=== PATIENT | female | born 1960 | race Caucasian/White ===

== ENCOUNTER 2017-03-27 12:21 | Observation (INO) | payer OTHER ==
[2017-03-27] MEDS ORDERED: RX INFO: IV CONTRAST WAS GIVEN 1 EACH MISC MISCELLANE PRN (12:52)
[2017-03-27 13:03] LABS: Basophils % (A) 0 %; Eosinophils # (A) 0.1 k/uL (0-0.7); Eosinophils % (A) 1 %; HCT 40.6 % (34.0-46.0); HGB 13.5 gm/dL (11.4-16.0); Lymphocytes # (A) 1.1 k/uL (1.0-4.8); Lymphocytes % (A) 15 %; MCHC 33.2 g/dL (31.0-37.0); MCV 90.5 fL (80.0-100.0); Mean Platelet Volume 7.3; Monocytes # (A) 0.3 k/uL (0-1.0); Monocytes % (A) 4 %; Neutrophils # (A) 6.1 k/uL (1.3-7.7); Neutrophils % (A) 80 %; Platelet Count 291 k/uL (150-450); RBC 4.49 m/uL (3.80-5.40); RDW 13.9 % (11.5-15.5); WBC 7.6 k/uL (3.8-10.6)
--- NOTE | 2017-03-27 13:04 | ED ---
General Adult HPI - General Chief complaint: Weakness Stated complaint: Near syncope Time Seen by Provider: 03/27/17 12:40 Source: patient, RN notes reviewed Mode of arrival: wheelchair Limitations: no limitations - History of Present Illness Initial comments: Patient is a pleasant 56-year-old female presenting to the emergency department for near syncopal event. Patient states she started feeling nauseated. Patient then went to the bathroom around noon. Patient felt odd sensation of the right arm alone. Patient states the right arm does feel a little bit weak. Onset was around noon. Patient felt like her legs aching weak and like she may pass out. Patient still feels mildly nauseated. Patient feels her right arm is still slightly weaker than her left arm. Patient states she may feel slightly confused. - Related Data Home Medications Medication Instructions Recorded Confirmed Aspirin EC [Ecotrin Low Dose] 81 mg PO DAILY 03/27/17 03/27/17 Biotin 5 mg PO DAILY 03/27/17 03/27/17 Calcium Carbonate [Calcium] 600 mg PO DAILY 03/27/17 03/27/17 Cholecalciferol [Vitamin D3] 1,000 unit PO DAILY 03/27/17 03/27/17 Cranberry Fruit Extract [Cranberry] 500 mg PO DAILY 03/27/17 03/27/17 Doxylamine Succinate [Unisom] 25 mg PO HS 03/27/17 03/27/17 diphenhydrAMINE [Benadryl] 25 mg PO HS 03/27/17 03/27/17 Allergies Allergy/AdvReac Type Severity Reaction Status Date / Time No Known Allergies Allergy Verified 03/27/17 14:17 Review of Systems ROS Statement: Those systems with pertinent positive or pertinent negative responses have been documented in the HPI. ROS Other: All systems not noted in ROS Statement are negative. Constitutional: Denies: fever Eyes: Denies: eye pain ENT: Denies: ear pain Respiratory: Denies: cough Cardiovascular: Denies: chest pain Endocrine: Denies: fatigue Gastrointestinal: Denies: abdominal pain Genitourinary: Denies: dysuria Musculoskeletal: Denies: back pain Skin: Denies: rash Neurological: Reports: weakness Past Medical History Past Medical History: No Reported History History of Any Multi-Drug Resistant Organisms: None Reported Additional Past Surgical History / Comment(s): oopherectomy Past Psychological History: Depression Smoking Status: Never smoker Past Alcohol Use History: Daily, Occasional Past Drug Use History: None Reported General Exam Limitations: no limitations General appearance: alert, in no apparent distress Head exam: Present: atraumatic Eye exam: Present: normal appearance, PERRL ENT exam: Present: normal oropharynx Neck exam: Present: normal inspection Respiratory exam: Present: normal lung sounds bilaterally Cardiovascular Exam: Present: regular rate, normal rhythm GI/Abdominal exam: Present: soft. Absent: tenderness Extremities exam: Present: normal inspection Neurological exam: Present: alert, oriented X3, CN II-XII intact Expanded Patient oriented to: Present: person, place, time Speech: Present: fluid speech Cranial nerves: EOM's Intact: Normal, Facial Sensation: Normal Cerebellar function: Finger to Nose: Abnormal Right Sensory exam: Upper Extremity Light Touch: Normal, Lower Extremity Light Touch: Normal Motor strength exam: RUE: 4, LUE: 5, RLE: 4, LLE: 5 Eye Response: (4) open spontaneously Motor Response: (6) obeys commands Verbal Response: (5) oriented Psychiatric exam: Present: normal affect, normal mood Skin exam: Present: normal color Course Vital Signs 03/27/17 03/27/17 03/27/17 12:32 12:53 13:08 Temperature 97.3 F L Pulse Rate 71 88 84 Respiratory 18 20 18 Rate Blood Pressure 156/83 157/81 149/89 O2 Sat by Pulse 98 95 97 Oximetry 03/27/17 03/27/17 03/27/17 13:23 13:38 14:25 Temperature Pulse Rate 82 88 79 Respiratory 18 18 18 Rate Blood Pressure 150/89 149/86 150/89 O2 Sat by Pulse 97 96 99 Oximetry - Reevaluation(s) Reevaluation #1: 03/27/17 13:09 Case was discussed with Dr. Ruano who does not feel TPA should be used at this time. 03/27/17 13:33 Nursing reports NIH at 0 EKG Findings - EKG Comments: EKG Findings:: Normal sinus rhythm 76. CT 160. QRS 86. QT 402. QTC 452. Normal axis. Septal Q waves. No acute ST change. Medical Decision Making - Medical Decision Making Patient reevaluated and symptom-free. Patient updated on results and plan. - Lab Data Result diagrams: 03/27/17 12:53 03/27/17 12:53 Lab Results 03/27/17 03/27/17 03/27/17 Range/Units 12:53 12:53 12:53 WBC 7.6 (3.8-10.6) k/uL RBC 4.49 (3.80-5.40) m/uL Hgb 13.5 (11.4-16.0) gm/dL Hct 40.6 (34.0-46.0) % MCV 90.5 (80.0-100.0) fL MCH 30.0 (25.0-35.0) pg MCHC 33.2 (31.0-37.0) g/dL RDW 13.9 (11.5-15.5) % Plt Count 291 (150-450) k/uL Neutrophils % 80 % Lymphocytes % 15 % Monocytes % 4 % Eosinophils % 1 % Basophils % 0 % Neutrophils # 6.1 (1.3-7.7) k/uL Lymphocytes # 1.1 (1.0-4.8) k/uL Monocytes # 0.3 (0-1.0) k/uL Eosinophils # 0.1 (0-0.7) k/uL Basophils # 0.0 (0-0.2) k/uL PT (9.0-12.0) sec INR (<1.2) APTT (22.0-30.0) sec Sodium 145 (137-145) mmol/L Potassium 3.8 (3.5-5.1) mmol/L Chloride 107 (98-107) mmol/L Carbon Dioxide 26 (22-30) mmol/L Anion Gap 12 mmol/L BUN 18 H (7-17) mg/dL Creatinine 0.81 (0.52-1.04) mg/dL Est GFR (MDRD) Af Amer >60 (>60 ml/min/1.73 sqM) Est GFR (MDRD) Non-Af >60 (>60 ml/min/1.73 sqM) Glucose 104 H (74-99) mg/dL Calcium 9.4 (8.4-10.2) mg/dL Total Bilirubin 0.3 (0.2-1.3) mg/dL AST 21 (14-36) U/L ALT 20 (9-52) U/L Alkaline Phosphatase 61 (38-126) U/L Total Creatine Kinase 134 (30-135) U/L CK-MB (CK-2) 1.2 (0.0-2.4) ng/mL CK-MB (CK-2) Rel Index 0.9 Troponin I <0.012 (0.000-0.034) ng/mL Total Protein 7.4 (6.3-8.2) g/dL Albumin 4.4 (3.5-5.0) g/dL 03/27/17 Range/Units 12:53 WBC (3.8-10.6) k/uL RBC (3.80-5.40) m/uL Hgb (11.4-16.0) gm/dL Hct (34.0-46.0) % MCV (80.0-100.0) fL MCH (25.0-35.0) pg MCHC (31.0-37.0) g/dL RDW (11.5-15.5) % Plt Count (150-450) k/uL Neutrophils % % Lymphocytes % % Monocytes % % Eosinophils % % Basophils % % Neutrophils # (1.3-7.7) k/uL Lymphocytes # (1.0-4.8) k/uL Monocytes # (0-1.0) k/uL Eosinophils # (0-0.7) k/uL Basophils # (0-0.2) k/uL PT 10.1 (9.0-12.0) sec INR 1.0 (<1.2) APTT 21.5 L (22.0-30.0) sec Sodium (137-145) mmol/L Potassium (3.5-5.1) mmol/L Chloride (98-107) mmol/L Carbon Dioxide (22-30) mmol/L Anion Gap mmol/L BUN (7-17) mg/dL Creatinine (0.52-1.04) mg/dL Est GFR (MDRD) Af Amer (>60 ml/min/1.73 sqM) Est GFR (MDRD) Non-Af (>60 ml/min/1.73 sqM) Glucose (74-99) mg/dL Calcium (8.4-10.2) mg/dL Total Bilirubin (0.2-1.3) mg/dL AST (14-36) U/L ALT (9-52) U/L Alkaline Phosphatase (38-126) U/L Total Creatine Kinase (30-135) U/L CK-MB (CK-2) (0.0-2.4) ng/mL CK-MB (CK-2) Rel Index Troponin I (0.000-0.034) ng/mL Total Protein (6.3-8.2) g/dL Albumin (3.5-5.0) g/dL - Radiology Data Radiology results: report reviewed (Computed tomography scan the brain shows no acute process. CTA of the brain and neck shows no acute process.), image reviewed (X-ray shows no acute process) Disposition Clinical Impression: TIA (transient ischemic attack) Disposition: ADMITTED IP TO THIS [facility] Referrals: None,Stated [Primary Care Provider] - 1-2 days Decision Time: 15:10
[2017-03-27 13:10] LABS: Prothrombin Time 10.1 sec (9.0-12.0)
[2017-03-27 13:15] LABS: ALT 20 U/L (9-52); AST 21 U/L (14-36); Albumin 4.4 g/dL (3.5-5.0); Alkaline Phosphatase 61 U/L (38-126); Anion Gap 12 mmol/L; Blood Urea Nitrogen 18 mg/dL (7-17); Calcium 9.4 mg/dL (8.4-10.2); Carbon Dioxide 26 mmol/L (22-30); Chloride 107 mmol/L (98-107); Glucose 104 mg/dL (74-99); Potassium 3.8 mmol/L (3.5-5.1); Sodium 145 mmol/L (137-145); Total Bilirubin 0.3 mg/dL (0.2-1.3); Total Protein 7.4 g/dL (6.3-8.2)
[2017-03-27 13:28] LABS: Creatine Kinase 134 U/L (30-135)
[2017-03-27 13:31] LABS: Partial Thromboplastin Time 21.5 sec (22.0-30.0)
--- NOTE | 2017-03-27 13:35 | CT ---
EXAMINATION TYPE: CT brain wo con for TPA DATE OF EXAM: 03/27/2017 COMPARISON: NONE HISTORY: 56-year-old female Chest deficits, Right sided weakness, tingling and nausea. TECHNIQUE: Examination was done in axial plane without intravenous contrast. Coronal and sagittal r econstructions performed. CT DLP: 1520 mGycm Automated exposure control for dose reduction was used. FINDINGS: There is no evidence of acute intracranial hemorrhage, acute ischemic changes, mass, mass-effect, or extra-axial fluid collection. There is no effacement of cerebral sulci or basal subarachnoid cister ns. There is no hydrocephalus. There is no midline shift. Rosales-white matter distinction is preserv ed. Incidental partially empty sella. Leftward nasal septal deviation. Hypoplastic right mastoid air cells. Orbits and globes appear intact . IMPRESSION: No acute intracranial abnormality seen. If symptoms persist, follow-up MRI.
[2017-03-27 13:40] LABS: Creatine Kinase MB 1.2 ng/mL (0.0-2.4); Troponin I <0.012 ng/mL (0.000-0.034)
--- NOTE | 2017-03-27 13:40 | CT ---
EXAMINATION TYPE: CT angio head neck DATE OF EXAM: 03/27/2017 COMPARISON: Correlation noncontrast CT brain same day HISTORY: 56-year-old female Neuro Deficits with nausea and right sided tingling TECHNIQUE: Contiguous axial scanning of the head and neck performed with IV Contrast, patient injecte d with 100 ml mL of Omnipaque 350. Coronal/sagittal MIP reconstructions performed. 3-D reconstruction s generated on a dedicated independent workstation. CT DLP: 375.42 mGycm Automated exposure control for dose reduction was used. FINDINGS: Head: Major intracranial arteries including the vertebral, basilar, and internal carotid arteries are paten t. Anterior and posterior circulations are grossly patent. No significant stenosis or aneurysmal rivas ge seen. NECK: Conventional arch vessel branching anatomy with patent arch vessel origins. Bilateral vertebral artery origins are patent. The vessels are codominant and patent throughout the c ourse. The common and internal carotid arteries are patent throughout their course. Tortuosity of the proxim al ICAs and both sides. IMPRESSION: 1. NO LARGE VESSEL INTRACRANIAL OCCLUSION. 2. WIDELY PATENT CAROTID AND VERTEBRAL ARTERIES IN THE NECK.
--- NOTE | 2017-03-27 14:06 | XR ---
EXAMINATION TYPE: XR chest 2V DATE OF EXAM: 03/27/2017 COMPARISON: NONE HISTORY: Altered mental status TECHNIQUE: Frontal and lateral views of the chest are obtained. FINDINGS: There is no focal air space opacity, pleural effusion, or pneumothorax seen. The cardiac silhouette size is within normal limits. There are overlying cardiac leads. The osseous structures a re intact. IMPRESSION: No acute cardiopulmonary process.
[2017-03-27] MEDS ORDERED: ASPIRIN 325 MG TAB PO STA (15:10)
[2017-03-27] MEDS: SODIUM CHLORIDE 0.9% 1,000 ML IV SCH (15:44)
[2017-03-27] MEDS ORDERED: CALCIUM CARBONATE 500 MG CHEWABLE PO PRN (16:05)
[2017-03-27] MEDS ORDERED: DOCUSATE 100 MG CAP PO PRN (16:05)
[2017-03-27] MEDS ORDERED: ACETAMINOPHEN TAB 325 MG TAB PO PRN (16:05)
[2017-03-27] MEDS ORDERED: ONDANSETRON 4 MG/2 ML VIAL IVP PRN (16:05)
[2017-03-27] MEDS ORDERED: MELATONIN 5 MG TABLET PO PRN (16:05)
[2017-03-27] MEDS ORDERED: HYDROcodone/APAP 5-325MG 1 EACH TAB PO PRN (16:05)
[2017-03-27] MEDS ORDERED: diphenhydrAMINE 50 MG CAP PO PRN (16:25)
--- NOTE | 2017-03-27 16:26 | P.HPIM ---
History of Present Illness H&P Date: 03/27/17 Chief Complaint: right arm weakness Patient is a 56-year-old female with a history of a pituitary microadenoma 26 years ago, prior headaches, and seasonal ALLERGIES who presented to the ER with complaints of right arm numbness and tingling and weakness. In the ER she underwent an extensive evaluation. Her initial laboratory analysis was unremarkable. Initial vital signs were within normal limits. There was concern for possible stroke and she received a dose of aspirin. Head CT was unremarkable. CTA of the head and neck was unremarkable. Arrangements are made for admission for possible TIA. Initially when she got to the ER she was having an abnormal finger to nose on the right as well as right upper extremity weakness with these resolved on recheck. Patient seen and examined at bedside. She states she was at work this morning and started feeling nauseous. She then went to the bathroom and started feeling lightheaded and dizzy. She then noted that numbness starting in her right hand and moving up words towards her right shoulder. A coworker came and took her to the break room. She then developed some right hand weakness and heaviness. They called the ER to further evaluate her. Initially she had thought her symptoms were due to stress. After her CT her numbness had completely resolved and her hand weakness was improved. She reports that 26 years ago she was told that she had a pituitary microadenoma with elevated prolactin levels after nursing her first child. At that point in time they tried medications which per her did not shrink the tumor. She has not had any medical treatment since then. She reports a 35 pound weight gain in the last year. She also reports that she has had visual changes including issues with double vision in her right eye and inability to differentiate colors. She has been seeing an agricultural aircraft pilot who had wanted her to see an morphology teacher, but she has not made an appointment yet. She also reports that she's been having almost daily headaches which are unchanged. She had been on a statin medication in the past but it made her nauseated and she no longer is taking this. She has not seen a primary care doctor in approximately 3 years. She also reports a right breast lump which has been growing in size. She denies any recent changes in medications. She has not had any recent cough , cold, fever, flu. Review of Systems Pertinent positives and negatives as per HPI, all other 12 point review of systems is negative Past Medical History Past Medical History: Hyperlipidemia Additional Past Medical History / Comment(s): ALLERGIC rhinitis, depression, headaches, pituitary adenoma History of Any Multi-Drug Resistant Organisms: None Reported Additional Past Surgical History / Comment(s): oopherectomy, tonsillectomy Past Psychological History: Depression Smoking Status: Never smoker Past Alcohol Use History: Daily (1-2 drinks 5 times weekly) Past Drug Use History: None Reported Additional History: Her son lives with her but he is not home much. 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 - Past Family History Mother Family Medical History: Coronary Artery Disease (CAD) Father Family Medical History: Coronary Artery Disease (CAD) Medications and Allergies Home Medications Medication Instructions Recorded Confirmed Type Aspirin EC [Ecotrin Low Dose] 81 mg PO DAILY 03/27/17 03/27/17 History Biotin 5 mg PO DAILY 03/27/17 03/27/17 History Calcium Carbonate [Calcium] 600 mg PO DAILY 03/27/17 03/27/17 History Cholecalciferol [Vitamin D3] 1,000 unit PO DAILY 03/27/17 03/27/17 History Cranberry Fruit Extract [Cranberry] 500 mg PO DAILY 03/27/17 03/27/17 History Doxylamine Succinate [Unisom] 25 mg PO HS 03/27/17 03/27/17 History diphenhydrAMINE [Benadryl] 25 mg PO HS 03/27/17 03/27/17 History Allergies Allergy/AdvReac Type Severity Reaction Status Date / Time No Known Allergies Allergy Verified 03/27/17 14:17 Physical Exam Osteopathic Statement: *. No significant issues noted on an osteopathic structural exam other than those noted in the History and Physical/Consult. Vitals: Vital Signs Temp Pulse Resp BP Pulse Ox 03/27/17 15:47 89 18 152/90 99 03/27/17 14:25 79 18 150/89 99 03/27/17 13:38 88 18 149/86 96 03/27/17 13:23 82 18 150/89 97 03/27/17 13:08 84 18 149/89 97 03/27/17 12:53 88 20 157/81 95 03/27/17 12:32 97.3 F L 71 18 156/83 98 Intake and Output 03/27/17 03/27/17 03/27/17 06:59 14:59 22:59 Other: Weight 68.039 kg Patient Weight 03/28/17 06:59 Weight 68.039 kg General: non toxic, no distress, appears at stated age, normal weight Derm: no unusual rashes/lesions no unusual ecchymoses, warm, dry Head: atraumatic, normocephalic, symmetric Eyes: EOMI, no lid lag, anicteric sclera, pupils equal round reactive to light ENT: Nose and ears atraumatic, no thrush, no pharyngeal erythema Neck: No thyromegaly, no cervical lymphadenopathy, trachea midline, supple Mouth: no lip lesion, mucus membranes moist Cardiovascular: S1S2 reg, no murmur, positive posterior tibial pulse bilateral, no edema, capillary refill less than 2 seconds Lungs: CTA bilateral, no rhonchi, no rales , no accessory muscle use Abdominal: soft, nontender to palpation, no guarding, no appreciable organomegaly, normal bowel sounds Ext: no gross muscle atrophy, muscle strength: 5/5 RUE 5/5 LUE 5/5 LLE 4/5 RLE did have some tremor in the right leg. , no contractures, Neuro: CN II-XI grossly intact, light touch intact all 4 extremities, finger to nose within normal limits, Psych: Alert, oriented, appropriate affect Results CBC & Chem 7: 03/27/17 12:53 03/27/17 12:53 Labs: Abnormal Lab Results - Last 24 Hours (Table) 03/27/17 03/27/17 Range/Units 12:53 12:53 APTT 21.5 L (22.0-30.0) sec BUN 18 H (7-17) mg/dL Glucose 104 H (74-99) mg/dL Comments: EKG is reviewed by myself reveals normal sinus rhythm at a rate of 76, normal intervals, normal axis, no significant ST-T wave changes Thrombosis Risk Factor Assmnt - DVT/VTE Prophylaxis DVT/VTE Prophylaxis: Pharmacologic Prophylaxis ordered Assessment and Plan Assessment: Right upper extremity numbness and weakness -Suspect TIA vs CVA vs B 12 deficiency vs anxiety -CT of the head and CTA of the head and neck is negative -Echocardiogram, telemetry, check lipid profile -Neurology consult -May benefit from MRI secondary to prior pituitary adenoma but will await neurology recommendations: then consider TSH and prolactic levels -PT/OT/speech recommendations -Aspirin, statin -Check B12 level with lung distribution of numbness Breast Lump - will need PCP on discharge - needs outpatient Mammogram. Headache -Tylenol Insomnia -Melatonin, Benadryl-she takes these at home Alcohol use -Monitor for signs of withdrawal Surrogate decision-maker: Son CODE STATUS:Full DVT prophylaxis: Lovenox Discussed with: Patient, ED physician Anticipated discharge: 24-[address]: home A total of 60 minutes was spent on the care of this complex patient more than 50 % of the time was spent in counseling and care coordination.
--- NOTE | 2017-03-27 16:46 | US ---
EXAMINATION TYPE: US carotid duplex BILAT DATE OF EXAM: 03/27/2017 COMPARISON: CT angio of head and neck CLINICAL HISTORY: 56-year-old female Stenosis. TECHNIQUE: Carotid duplex ultrasound examination. Indirect Doppler criteria was utilized. FINDINGS: EXAM MEASUREMENTS: RIGHT: Peak Systolic Velocity (PSV) cm/sec ----- Right CCA: 92.5 ----- Right ICA: 83.1 ----- Right ECA: 95.5 ICA/CCA ratio: 0.9 RIGHT: End Diastole cm/sec ----- Right CCA: 18.3 ----- Right ICA: 36.9 ----- Right ECA: 11.8 LEFT: Peak Systolic Velocity (PSV) cm/sec ----- Left CCA: 74.5 ----- Left ICA: 72.9 ----- Left ECA: 86.9 ICA/CCA ratio: 1.0 LEFT: End Diastole cm/sec ----- Left CCA: 18.9 ----- Left ICA: 34.5 ----- Left ECA: 13.4 VERTEBRALS (direction of flow): Right Vertebral: Antegrade Left Vertebral: Antegrade Rhythm: Arrhythmia MANAGER GAS NOTES: Dr. Amado aware CT angio done first. No evident plaque, ICA dove at 90 degree angle distally. No significant velocity elevations. IMPRESSION: No hemodynamically significant stenosis identified in either internal carotid artery. Criteria for Assigning % of Stenosis / Diameter reduction (Estimation based on the indirect measurements of the internal carotid artery velocities (ICA PSV). 1. Normal (no stenosis)=ICA PSV < 125 cm/s: ratio < 2.0: ICA EDV<40 cm/s. 2. Less than 50% stenosis=ICA PSV < 125 cm/s: ratio < 2.0: ICA EDV<40 cm/s. 3. 50 to 69% stenosis=ICA PSV of 125 to 230 cm/s: ration 2.0 ? 4.0: ICA EDV 40-100 cm/s. 4. Greater than 70% stenosis to near occlusion= ICA PSV > 230 cm/s: ratio > 4.0: ICA EDV > 100 cm/s. 5. Near occlusion= ICA PSV velocities may be low or undetectable: variable ratio and ICA EDV. 6. Total occlusion=unable to detect flow.
[2017-03-27 20:56] VITALS: RESP 16
[2017-03-27] MEDS ORDERED: ATORVASTATIN 20 MG TAB PO SCH (21:00)
[2017-03-28] MEDS: SODIUM CHLORIDE 0.9% 1,000 ML IV SCH ×2 (02:18→11:31)
[2017-03-28 06:41] LABS: Anion Gap 8 mmol/L; Blood Urea Nitrogen 13 mg/dL (7-17); Calcium 8.7 mg/dL (8.4-10.2); Carbon Dioxide 28 mmol/L (22-30); Chloride 107 mmol/L (98-107); Cholesterol 151 mg/dL (<200); Glucose 87 mg/dL (74-99); HDL Cholesterol 50 mg/dL (40-60); LDL Cholesterol,Calculated 86 mg/dL (0-99); Magnesium 1.9 mg/dL (1.6-2.3); Potassium 4.1 mmol/L (3.5-5.1); Sodium 143 mmol/L (137-145); Triglycerides 76 mg/dL (<150)
[2017-03-28] MEDS ORDERED: LORazepam 2 MG/ML INJ IV ONE (09:00)
[2017-03-28] MEDS ORDERED: NON-FORMULARY DRUG (Biotin [Biotin] 5 MG) PO SCH (09:00)
[2017-03-28] MEDS ORDERED: ASPIRIN 325 MG TAB PO SCH (09:00)
[2017-03-28] MEDS ORDERED: ENOXAPARIN 40 MG/0.4 ML SYRINGE SQ SCH (09:00)
--- NOTE | 2017-03-28 10:46 | MR ---
EXAMINATION TYPE: MR brain wo con DATE OF EXAM: 03/28/2017 COMPARISON: 03/27/2017 CT brain, MRI 08/19/2013 HISTORY: CVA, hx of pituitary adenoma T1-weighted sagittal, T2, FLAIR, and diffusion axial, and T2 coronal coronal views of the brain are s ubmitted. There is no evidence of acute ischemia. The ventricles, basal cisterns, and sulci overlying the conv exities are consistent with the patient's age. There is no mass effect. Craniocervical junction maintained. Sella turcica has a normal appearance. No cerebellopontine angle mass. There are multiple nonspecific areas of abnormal signal within the wh ite matter. Findings are stable. Changes of chronic sinusitis noted. IMPRESSION: 1. No acute intracranial process. 2. Stable nonspecific white matter changes. Remote microvascular ischemia favored. Other etiologies i ncluding demyelinating process not entirely excluded.
[2017-03-28 11:26] VITALS: BP 130/76; PULSE 93; TEMP 96.8
--- NOTE | 2017-03-28 11:42 | ECHOF ---
Referral Reason:Thrombus MEASUREMENTS -------- HEIGHT: 170.2 cm WEIGHT: 68.0 kg BP: 150/89 RVIDd: 1.8 cm (< 3.3) IVSd: 1.0 cm (0.6 - 1.1) LVIDd: 3.9 cm (3.9 - 5.3) LVPWd: 1.2 cm (0.6 - 1.1) IVSs: 1.4 cm LVIDs: 3.1 cm LVPWs: 1.3 cm LAESV Index (A-L): 18.57 ml/m Ao Diam: 3.0 cm (2.0 - 3.7) AV Cusp: 1.9 cm (1.5 - 2.6) LA Diam: 1.9 cm (2.7 - 3.8) EPSS: 0.3 cm MV E Sandro: 0.75 m/s MV DecT: 371 ms MV A Sandro: 0.88 m/s MV E/A Ratio: 0.85 RAP: 5.00 mmHg RVSP: 10.01 mmHg MV EF SLOPE: 127.82 mm/s (70 - 150) MV EXCURSION: 1.89 cm (> 18.000) FINDINGS -------- Sinus rhythm. This was a technically adequate study. The left ventricular size is normal. There is borderline concentric left ventricular hypertrophy. Overall left ventricular systolic function is low-normal with, an EF between 50 - 55 %. The right ventricle is normal in size and function. Normal LA size by volume 22+/-6 ml/m2. RA appears enlarged. Aortic valve is trileaflet and is mildly thickened. There is no evidence of aortic regurgitation. There is no evidence of aortic stenosis. The mitral valve leaflets are mildly thickened. Mild mitral regurgitation is present. Trace tricuspid regurgitation present. Right ventricular systolic pressure is normal at < 35 mmHg. There is no evidence of pulmonary hypertension. The pulmonic valve was not well visualized. The aortic root size is normal. Normal inferior vena cava with normal inspiratory collapse consistent with estimated right atrial pre ssure of 5 mmHg. CONCLUSIONS -------- 1. Sinus rhythm. 2. This was a technically adequate study. 3. The left ventricular size is normal. 4. There is borderline concentric left ventricular hypertrophy. 5. Overall left ventricular systolic function is low-normal with, an EF between 50 - 55 %. 6. Normal LA size by volume 22+/-6 ml/m2. 7. RA appears enlarged. 8. Aortic valve is trileaflet and is mildly thickened. 9. The mitral valve leaflets are mildly thickened. 10. Mild mitral regurgitation is present. 11. Trace tricuspid regurgitation present. 12. Right ventricular systolic pressure is normal at < 35 mmHg. 13. There is no evidence of pulmonary hypertension. 14. The pulmonic valve was not well visualized. 15. The aortic root size is normal. TOWER DRAGLINE OPERATOR: Good Guerrero RDCS
[2017-03-28] MEDS ORDERED: CHOLECALCIFEROL 1,000 UNIT TAB PO SCH (12:00)
[2017-03-28] MEDS ORDERED: CALCIUM CARBONATE 500 MG CHEWABLE PO SCH (12:00)
--- NOTE | 2017-03-28 12:33 | P.DS ---
Providers Date of admission: 03/27/17 15:10 Expected date of discharge: 03/28/17 Attending physician: Janis Vázquez DO Consults: 03/27/17 15:11 Consult Physician Urgent Consulting Provider: Kinjal Rodriguez Consult Reason/Comments: tia Do you want consulting provider notified?: Yes Primary care physician: Stated None - Discharge Diagnosis(es) (1) TIA (transient ischemic attack) Current Visit: Yes Status: Acute (2) HLD (hyperlipidemia) Current Visit: Yes Status: Acute (3) LVH (left ventricular hypertrophy) Current Visit: Yes Status: Acute Hospital Course: Patient is a 56-year-old female with a history of a pituitary microadenoma 26 years ago, prior headaches, and seasonal ALLERGIES who presented to the ER with complaints of right arm numbness and tingling and weakness. In the ER she underwent an extensive evaluation. Her initial laboratory analysis was unremarkable. Initial vital signs were within normal limits. There was concern for possible stroke and she received a dose of aspirin. Head CT was unremarkable. CTA of the head and neck was unremarkable. Arrangements are made for admission for possible TIA. Initially when she got to the ER she was having an abnormal finger to nose on the right as well as right upper extremity weakness but these resolved on recheck. She subsequently underwent an MRI of the brain which did not show any abnormality in the pituitary area. Here systolic blood pressure here ranged from 130-150s. Her echocardiogram showed possible mild concentric LVH. Her lipid profile did show an LDL of 86 and a total cholesterol of 151. We discussed dietary changes and increased exercise versus medication. She states that it would be hard for her to incorporate diet and exercise at this point in time secondary to increased work load. She does want it was eventually. In the meantime she'll be started on statin therapy. We discussed that she may have high blood pressure as well. She does not have any severely elevated blood pressures during hospitalization of the longer she was here more her blood pressure became controlled. I have urged her that she will need close outpatient follow-up to determine whether she needs antihypertensive medications or not. She is agreeable with this plan of care. 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 They felt she may need evaluation by endocrinology secondary to history of pituitary adenoma, however 1 was not seen on MRI. I have included Dr. Magallanes's information in case they continue to want her to see endocrinology for other reasons. She is determined stable for discharge home. She was further referred to Dr. Wharton for her primary care for provider. Patient seen and examined at bedside. Weakness resolved, numbness and tingling resolved. No headaches. Feeling well. No chest pain, shortness breath, nausea , or vomiting. We discussed all of the above lab results and test results. Vital signs reviewed and stable. General: non toxic, no distress, appears at stated age Derm: warm, dry Head: atraumatic, normocephalic, symmetric Eyes: EOMI, no lid lag, anicteric sclera Mouth: no lip lesion, mucus membranes moist Cardiovascular: S1S2 reg, no murmur, positive posterior tibial pulse bilateral, Lungs: CTA bilateral, no rhonchi, no rales , no accessory muscle use Abdominal: soft, nontender to palpation, no guarding, no appreciable organomegaly Ext: no gross muscle atrophy, no edema, no contractures Neuro: CN II-XI grossly intact, no focal neuro deficits Psych: Alert, oriented, appropriate affect A total of 35 minutes of time were spent preparing this complex discharge summary . Pertinent Studies: CT head- No acute process CTA head and neck- No significant stenosis Echo- EF 50-55%, mild concentric LVH MRI brain- Non specific white matter changes. Remote microvasvular ischemia favored other etiologies such as demyelinating process not entirely excluded. Patient Condition at Discharge: Stable Plan - Discharge Summary Discharge Rx Participant: No New Discharge Prescriptions: New Atorvastatin [Lipitor] 20 mg PO HS #30 tab Continue diphenhydrAMINE [Benadryl] 25 mg PO HS Doxylamine Succinate [Unisom] 25 mg PO HS Cranberry Fruit Extract [Cranberry] 500 mg PO DAILY Cholecalciferol [Vitamin D3] 1,000 unit PO DAILY Calcium Carbonate [Calcium] 600 mg PO DAILY Biotin 5 mg PO DAILY Aspirin EC [Ecotrin Low Dose] 81 mg PO DAILY Discharge Medication List Aspirin EC [Ecotrin Low Dose] 81 mg PO DAILY 03/27/17 [History] Biotin 5 mg PO DAILY 03/27/17 [History] Calcium Carbonate [Calcium] 600 mg PO DAILY 03/27/17 [History] Cholecalciferol [Vitamin D3] 1,000 unit PO DAILY 03/27/17 [History] Cranberry Fruit Extract [Cranberry] 500 mg PO DAILY 03/27/17 [History] Doxylamine Succinate [Unisom] 25 mg PO HS 03/27/17 [History] diphenhydrAMINE [Benadryl] 25 mg PO HS 03/27/17 [History] Atorvastatin [Lipitor] 20 mg PO HS #30 tab 03/28/17 [Rx] Follow up Appointment(s)/Referral(s): None,Stated [Primary Care Provider] - 1-2 days
== END 2017-03-28 15:45 | disposition home or self-care (01) ==
LOC: EC 12:21 → 6SEL 15:10
PROVIDERS: ADMIT Internal Medicine; ATTEND Internal Medicine
DX: G45.9 Transient cerebral ischemic attack, unspecified (principal); E78.5 Hyperlipidemia, unspecified; N63.10 Unspecified lump in the right breast, unspecified quadrant; G47.00 Insomnia, unspecified; I51.7 Cardiomegaly; R51 Headache; Z86.39 Personal history of other endocrine, nutritional and metabolic disease; Z79.82 Long term (current) use of aspirin; Z82.49 Family history of ischemic heart disease and other diseases of the circulatory system; J30.2 Other seasonal allergic rhinitis
CPT/HCPCS: 99285 ×2; 96361 ×4; 96372; 96374; 36415; 93005; 93306; 97161; 97165; 92523; 80061; 80053; 80048; 84443; 82550; 82553; 83735; 84484; 85025; 85610; 85730; 71046; 93880; 70496; 70450; 70498; 70551; G0378 ×2; J2060; Q9967; J1650